=== PATIENT | male | born 1945 | race Caucasian/White ===

== ENCOUNTER 2019-11-21 09:52 | Outpatient (CLI) | payer MEDICARE, SELFPAY ==
[2019-11-21 13:39] LABS: Alanine Aminotransferase 19 U/L (4-50); Albumin Level 4.4 g/dL (3.5-5.1); Alkaline Phosphatase 77 U/L (38-126); Aspartate Amino Transferase 21 U/L (17-59); Bilirubin,Total 0.4 mg/dL (0.2-1.3); Blood Urea Nitrogen 23 mg/dL (9-20); Calcium 10.1 mg/dL (8.4-10.2); Carbon Dioxide 25 mmol/L (22-30); Chloride 95 mmol/L (98-107); Cholesterol 131 mg/dL (0-200); Estimated Glomerular Filt Rate > 60; Glucose 206 mg/dL (75-110); HDL Direct 41 mg/dL; Potassium 4.7 mmol/L (3.4-5.0); Sodium 139 mmol/L (137-145); Triglycerides 153 mg/dL (<150)
[2019-11-21 13:49] LABS: LDL Cholesterol Direct 67 mg/dL
[2019-11-21 14:04] LABS: Creatinine Urine 78.9 mg/dL
[2019-11-21 14:08] LABS: MALB Creatinine Ratio 12.7 mg/g (0-30)
[2019-11-23 05:06] LABS: C-Peptide <0.10 ng/mL (0.80-3.85)
[2019-11-24 12:37] LABS: Glutamic acid decarboxylase AA 41 IU/mL (<5)
[2019-11-25 00:57] LABS: Islet Cell Antibody Screen NEGATIVE (NEGATIVE)
== END 2019-11-21 09:53 | disposition home or self-care (01) ==
PROVIDERS: Visit Provider Internal Medicine Endocrinology, Diabetes & Metabolism
DX: E11.9 Type 2 diabetes mellitus without complications (principal)
CPT/HCPCS: 36415; 80053; 80061; 82043; 84443; 84681; 86341

== ENCOUNTER 2022-01-08 12:16 | Emergency (ER) | payer MEDICARE, SELFPAY ==
--- NOTE | ~2022-01-08 | XR_ITS ---
EXAMINATION: XR tibia fibula LT 2V EXAM DATE: 01/08/2022 13:00 INDICATION: Tenderness along tibia. TECHNIQUE: Left tibia/fibula frontal and lateral projections obtained and reviewed. Correlation is ma de to knee exam same date.. FINDINGS: Left tibial and fibular shafts unremarkable. There are no acute fractures or dislocations identified. There is no subcutaneous gas. There is soft tissue swelling knee anteromedially. There are no radiopaque foreign bodies. IMPRESSION: 1. XR tibia fibula LT 2V exam without acute osseous findings. 2. Soft tissue swelling. Reviewed, dictated and finalized at location A.
--- NOTE | ~2022-01-08 | XR_ITS ---
EXAMINATION: XR knee LT 3V EXAM DATE: 01/08/2022 12:35 INDICATION: Swelling, Medial Aspect Bruising, Fall X 2 Days Ago . TECHNIQUE: Three projections of the left knee. There is no prior study for comparison. FINDINGS: No evidence osteochondral defect or joint body in the left knee joint. There are no acute fractures or dislocations identified. There is no subcutaneous gas. There is soft tissue swelling o verlying the knee anteromedially. No sizable joint effusion. Some vascular calcifications. Minimal pr imary osteoarthritis. There are no radiopaque foreign bodies. IMPRESSION: 1. XR knee LT 3V exam without acute osseous findings. 2. Soft tissue swelling. Reviewed, dictated and finalized at location A.
[2022-01-08 12:18] VITALS: BP 167/78; PULSE 110; RESP 18; TEMP 36.2; O2SAT 99
--- NOTE | 2022-01-08 12:51 | ED.LOWEXIN ---
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 Patient states he was carrying a lot of items in his hand when he turned around a corner and lost his balance, landing on his left knee. He was able to get himself up off the ground without help. He states the knee pain and swelling has increased in severity since onset. Reports mild relief with ibuprofen and ice. Has been walking/ bearing weight with some pain. He denies any hip pain, head injury, loss of consciousness. Takes aspirin daily but no other blood thinners. Related Data Home Medications Medication Instructions Recorded Confirmed levetiracetam 750 mg tablet 750 mg PO BID tablet 11/21/19 09/16/21 amitriptyline 25 mg tablet 25 mg PO QHS tablet 09/16/21 09/16/21 aspirin 81 mg tablet,delayed 81 mg PO DAILY 09/16/21 09/16/21 release insulin glargine 100 unit/mL (3 50 unit SUB-Q DAILY ml 09/16/21 09/16/21 mL) subcutaneous pen lisinopril 20 1 tablet PO DAILY tablet 09/16/21 09/16/21 mg-hydrochlorothiazide 25 mg tablet prednisolone acetate 1 % eye 1 drp EACH EYE Q12H 09/16/21 09/16/21 drops,suspension Allergies Allergy/AdvReac Type Severity Reaction Status Date / Time No Known Allergies Allergy Unknown Verified 01/08/22 12:20 Review of Systems Review of Systems: Gen.: Denies fevers or chills Eyes: Denies eye pain or visual change ENT: Denies congestion Respiratory: Denies shortness of breath or cough CV: Denies chest pain or palpitations GI: Denies abdominal pain nausea, emesis or diarrhea denies burning, urgency, frequency or hematuria Musculoskeletal: Reports right knee pain and chou pain. Denies back pain or muscle pain Neuro: Denies numbness, tingling, weakness or focal weakness Skin: Denies rash Except as documented, all other systems reviewed and negative All systems reviewed & are unremarkable except as noted in HPI and below PMFSH Past Medical History Medical History Asthma Blind right eye Brain tumor Dyslipidemia Essential (primary) hypertension Glaucoma History of meningioma of the brain Hypertension Seizure Seizure prophylaxis Type 2 diabetes mellitus without complications Urinary incontinence, nocturnal enuresis Surgical History Surgical History History of cataract surgery 06/2021 - Left History of craniotomy 2003 - excision of meningioma History of eye surgery 08/2021 - for Left retinal cyst Family History Family History Mother Diabetes mellitus Family history of glaucoma Father Family history of malignant neoplasm Other Family history of congestive heart failure Family history of thyroid disease Social History Social History Smoking status: Current every day smoker Tobacco type: pipe Alcohol intake: never Exam Narrative: Gen: Alert, oriented male in no acute distress. Eyes: Patient is blind in the right eye. Pulm: Respirations even and unlabored, symmetric thorax expansion, no audible stridor or visible cyanosis CV: Regular rate per telemetry GI: No distension, no voluntary/involuntary guarding MSK: Left knee is notably swollen and tender to palpation with ballottement. Small contusion over left knee with some pale erythema surrounding. No warmth to the joint. Tender to palpation over length of the tibia, most notably in the proximal region. Reports pain with left knee flexion. He has full range of motion in his left hip with no tenderness
[2022-01-08 14:06] VITALS: BP 165/68; PULSE 98; RESP 12; O2SAT 97
== END 2022-01-08 14:07 | disposition home or self-care (01) ==
PROVIDERS: Emergency Provider Emergency Medicine; PCP Family Medicine
DX: M70.52 Other bursitis of knee, left knee (principal); E11.9 Type 2 diabetes mellitus without complications; Z79.82 Long term (current) use of aspirin; Z79.4 Long term (current) use of insulin; J45.909 Unspecified asthma, uncomplicated; E78.5 Hyperlipidemia, unspecified; I10 Essential (primary) hypertension; H40.9 Unspecified glaucoma; H54.61 Unqualified visual loss, right eye, normal vision left eye; Z98.42 Cataract extraction status, left eye; F17.290 Nicotine dependence, other tobacco product, uncomplicated; W18.39XA Other fall on same level, initial encounter
CPT/HCPCS: 73562; 73590; 99283

== ENCOUNTER 2022-02-23 09:00 | Outpatient (RCR) | payer MEDICARE, SELFPAY ==
--- NOTE | 2022-02-02 11:34 | PTOPEVAL ---
PHYSICAL THERAPY EVALUATION AND PLAN OF CARE 02-02-22 Thank you for referring Geovani Jackson to [facility] for the diagnosis of L knee contusion, pain and edema. Geovani is scheduled to be seen for therapy? 2 x/week for 3 weeks. Please review, sign, date and return this plan of care LAYO. I agree with and certify that the following plan of care is medically necessary. Referring Physician Date Attending Provider: Desean Aguilera MD Past Medical History Source of Past Medical History Recalled from Previous Visit, Confirmed with Patient/Family Neurological History Hx Other Neurological Disorders Yes: craniotomy due to meningioma, result blind R eye Cardiovascular History Hx Hypertension Yes: meds Respiratory History Hx Asthma Yes: as child Hx COVID-19 Yes: tested positive,only slight s/s Gastrointestinal History Hx Gastrointestinal Disorders No Significant History Genitourinary History Hx Genitourinary Disorders No Significant History Musculoskeletal History Hx Other Musculoskeletal Disorders Yes: off balance with walking due to blind R eye Endocrine History Hx Diabetes Yes: meds HEENT History Hx Other HEENT Disorders Yes: blind R eye Evaluation Information Diagnosis L knee contusion, cellulitis, localized edema Onset 01-06-22 Subjective Information fell when carrying clothes, Query Text:As Reported By Patient/ lost balance, fell forward, Family landing on L knee; xrays of leg were negative; leg is still swollen and painful; have completed antibiotics; Additional Prior Level of Function since fall and leg pain, Comments decreased walking and going to basement for his shop ; no other falls than this in past 6 months; foot is swollen and for ease to put on --wearing slip on shoes only; after initial injury to knee, did all home chores; Pain Assessment Pain Scale Used Numeric (1 - 10) Self Report Pain Assessment Left leg Reported Pain Level 6 Pain Description Aching,Soreness Pain Frequency Acute,Continuous Lowest Pain Intensity 1 Greatest Pain Intensity 6 Pain Aggravating Factors Walking,Weight Bearing/ Standing Other Pain Aggravating Factors up/stand/walking 30 min(norm for him few hrs) turn over in
--- NOTE | 2022-02-23 09:52 | PTOPEVAL ---
Addendum entered by Shavon Cosby, PT 02/23/22 09:56: DISCHARGE PHYSICAL THERAPY 02-23-22 Refer to the clinical summary below; discharge PT services. Original Note: Thank you for referring Geovani Jackson to [facility].? The patient is scheduled to be seen for therapy? ____x/week for ___ weeks. Please review, sign, date and return this plan of care LAYO. I agree with and certify that the following plan of care is medically necessary. Referring Physician Date Attending Provider: Desean Aguilera MD Subjective Information Geovani reports: balance is Query Text:As Reported By Patient/ better; knee is not hurting as Family much; leg strength is better; doing exercises at home; has not had any falls; going into his basement without any problems on the stairs; feel like ready to be done with therapy; Pain Assessment Pain Scale Used Numeric (1 - 10) Self Report Pain Assessment Left Knee(s) Reported Pain Level 0 Pain Description Aching Pain Frequency Chronic,Intermittent Other Pain Description achey- inferior patella, slightly medial Lowest Pain Intensity 0 Greatest Pain Intensity 5 Other Pain Aggravating Factors at night when turn over in bed - twist leg Additional Pain Score Comments walking tolerance of 30 minutes; awaken from sleep 2-3 x/night due to turning and twist knee; Gross Lower Extremity Range of Motion sitting L knee active ROM 0'- Comments 125' without pain; L ankle motions without pain; Gross Lower Extremity Strength functional strength testing: - single leg standing L- unable to do without UE support; with finger tip support 1 UE, hold single leg for 18 seconds; --sit to stand with 1 UE use and stand to sit without UE use - supine SLR x 22 reps - sitting knee extension to 0' x 25 reps - side lying hip abduction x 20 reps Palpation with palpation over L knee: no tenderness over distal- medial thigh; little tenderness over inferior patella-
== END 2022-02-23 11:15 | disposition home or self-care (01) ==
LOC: ANHPT 09:00
PROVIDERS: PCP Family Medicine; Referring Provider Orthopaedic Surgery; Visit Provider Orthopaedic Surgery
DX: S80.02XD Contusion of left knee, subsequent encounter (principal); L03.116 Cellulitis of left lower limb; R60.0 Localized edema
CPT/HCPCS: 97110; 97140; 97162; 97530

== ENCOUNTER 2022-07-26 16:00 | Inpatient (IN) | payer MEDICARE, OTHER, SELFPAY ==
--- NOTE | ~2022-07-26 | XR_ITS ---
XR surgery orthopedic DATE: 07/27/2022 16:26 INDICATION: ORIF right femoral fracture TECHNIQUE: 6 spot C-arm images of the right hip and femur 51.8 seconds fluoroscopy time 0.2529 mGym2 total dose area product COMPARISON: 07/26/2022 right hip FINDINGS: There is an antegrade nail of the right femur with interlocking compression screw terminati ng in the right femoral head. There is another interlocking screw at the femoral shaft. There is near-anatomic position and alignment at the comminuted intertrochanteric and proximal femora l shaft fracture. IMPRESSION: ORIF right femoral fracture Reviewed, dictated and finalized at Location A. Reviewed, dictated and finalized at location A. IMPRESSION: ORIF right femoral fracture
--- NOTE | ~2022-07-26 | XR_ITS ---
EXAMINATION: XR hip RT 2V w AP pelvis INDICATION: Right hip pain, initial encounter TECHNIQUE: AP view the pelvis and two views of the right hip are obtained. COMPARISON: None available FINDINGS: There is an oblique fracture of the proximal femur oriented inferolaterally from the lesser trochanter to the outer cortex of the proximal femoral shaft. There are additional fracture planes i n the proximal femur extending towards the greater trochanter. There is moderate osteoarthritis of th e hip. No additional fracture is identified. Calcified atherosclerosis is noted. IMPRESSION: 1. Oblique fracture of the proximal shaft of the right femur with additional fracture planes in the p roximal femur extending towards the greater trochanter. Reviewed, dictated and finalized at location F. IMPRESSION: 1. Oblique fracture of the proximal shaft of the right femur with additional fr acture planes in the proximal femur extending towards the greater trochanter.
--- NOTE | ~2022-07-26 | XR_ITS ---
EXAMINATION: XR chest 1V portable INDICATION: Hypertension TECHNIQUE: Portable AP chest at 1753 hours COMPARISON: 07/02/2014 FINDINGS: The lungs are free of acute opacities. No pleural effusion or pneumothorax. The cardiomedia stinal silhouette is normal. IMPRESSION: 1. No acute cardiopulmonary abnormality. Reviewed, dictated and finalized at location F.
[2022-07-26 16:02] VITALS: BP 159/65; PULSE 79; RESP 18; TEMP 37; O2SAT 97
--- NOTE | 2022-07-26 17:29 | ECG_ITS ---
Measurements Intervals [place] Rate: 73 P: 26 NE: 163 QRS: 6 QRSD: 99 T: 30 QT: 401 QTc: 443 Interpretive Statements SINUS RHYTHM NO PREVIOUS ECG AVAILABLE FOR COMPARISON Electronically Signed On 07-26-2022 19:51:02 CDT by Ashly Greenwood M.D.
--- NOTE | 2022-07-26 17:46 | ED.FALL ---
HPI - Fall General Chief Complaint: Fall Stated Complaint: FALL, HIP PAIN Time Seen by Provider: 07/26/22 16:49 Source: patient and EMS Mode of arrival: EMS Limitations: no limitations History of Present Illness HPI Narrative: 76 years white male came to the emergency room by ambulance after a fall in his garage. Complaining of right hip pain. He denies other injuries. Patient was raking leaves, lost his balance and fell on the right side of his body. He denies loss of consciousness, head injury, neck injury, back injury. Patient on baby aspirin every other day. History of tension, diabetes, seizure. Related Data Home Medications Medication Instructions Recorded Confirmed levetiracetam 750 mg tablet 750 mg PO BID 11/21/19 03/18/22 amitriptyline 25 mg tablet 25 mg PO QHS 09/16/21 03/18/22 aspirin 81 mg tablet,delayed 81 mg PO DAILY 09/16/21 03/18/22 release insulin glargine 100 unit/mL (3 50 unit subcut DAILY 09/16/21 03/18/22 mL) subcutaneous pen (Lantus Solostar U-100 Insulin) lisinopril 20 1 tablet PO DAILY 09/16/21 03/18/22 mg-hydrochlorothiazide 25 mg tablet insulin aspart U-100 100 unit/mL 16 unit subcut TID 03/18/22 03/18/22 (3 mL) subcutaneous pen (Novolog Flexpen U-100 Insulin aspart) Allergies Allergy/AdvReac Type Severity Reaction Status Date / Time No Known Allergies Allergy Unknown Verified 07/26/22 16:11 Review of Systems Review of Systems: All systems reviewed & are unremarkable except as noted in HPI and below PMFSH Past Medical History Medical History Asthma Blind right eye Brain tumor Dyslipidemia Essential (primary) hypertension Glaucoma History of meningioma of the brain Hypertension Seizure Seizure prophylaxis Type 2 diabetes mellitus without complications Urinary incontinence, nocturnal enuresis Surgical History Surgical History History of cataract surgery 06/2021 - Left History of craniotomy 2003 - excision of meningioma History of eye surgery 08/2021 - for Left retinal cyst Family History Family History Mother Diabetes mellitus Family history of glaucoma Father Family history of malignant neoplasm Other Family history of congestive heart failure Family history of thyroid disease Social History Social History Smoking status: Current every day smoker Tobacco type: pipe Alcohol intake: never Exam Narrative: General appearance: Well-developed, well-nourished Skin: Normal color Head: Normocephalic, nontraumatic Eyes: Clear conjunctiva ENT: Oropharynx normal, ears normal, nose normal Neck: Supple, nontender Chest and respiratory: Airway patent, no respiratory distress, no accessory muscle use Heart: Regular rate/rhythm Abdomen: Soft, nontender, no organomegaly, quiet bowel sounds Vascular: Normal peripheral pulses, normal capillary refill. Musculoskeletal: Right lower extremity is externally rotated and shorter compared to the left 1. Severe limited range of motion at the hip area. Neurologic: Alert and oriented ?3, [employer] is normal as tested, no gross motor deficit Course Consultations Consultation #1: Dr. Garrido Date: 07/26/22 Time: 18:55 Consultation #2: Dr. Harrison/Trinity Date: 07/26/22 Time: 18:56 Vital Signs Vital signs: Vital Signs Temperature 37.0 C 07/26/22 16:02 Pulse Rate 79 07/26/22 16:02 Respiratory Rate 18 07/26/22 16:02 Blood Pressure 159/65 H 07/26/22 16:02 Pulse Oximetry 97 07/26/22 16:02 Oxygen Delivery
[2022-07-26 17:48] LABS: Basophils Absolute Auto 0.1 K/mm3 (0.0-0.1); Basophils Percent Auto 0.8 % (0.2-1.2); Eosinophils Absolute Auto 0.3 K/mm3 (0-0.3); Eosinophils Percent Auto 2.5 % (0-4.4); Hematocrit 44.2 % (42.0-52.0); Hemoglobin 14.3 g/dL (14.0-18.0); Immature Granulocyte Absolute 0.05 K/mm3 (0.00-0.031); Immature Granulocyte Percent A 0.4 % (0-0.5); Lymphocytes Absolute Auto 1.53 K/mm3 (0.9-3.2); Lymphocytes Percent Auto 12.6 % (18.3-44.2); Mean Corpuscular HGB Conc 32.4 g/dl (32-36); Mean Corpuscular Hemoglobin 27.6 pg (26-34); Mean Corpuscular Volume 85.3 fl (80-100); Mean Platelet Volume 9.3 fl (7.4-10.4); Monocytes Absolute Auto 0.8 K/mm3 (0.1-0.6); Monocytes Percent Auto 6.8 % (2.6-8.5); Neutrophils Absolute Auto 9.3 K/mm3 (1.3-6.7); Neutrophils Percent Auto 76.9 % (45.5-73.1); Platelet Count Result 327 k/mm3 (150-375); Red Blood Count 5.18 M/mm3 (4.6-6.20); White Blood Count 12.1 K/mm3 (4.5-10.0)
[2022-07-26 17:59] LABS: Alanine Aminotransferase 19 U/L (6-50); Albumin Level 4.2 g/dL (3.5-5.1); Alkaline Phosphatase 70 U/L (38-126); Anion Gap 8 mmol/L (8-16); Aspartate Amino Transferase 19 U/L (17-59); Bilirubin,Total 0.2 mg/dL (0.2-1.3); Blood Urea Nitrogen 29 mg/dL (9-20); Calcium 9.5 mg/dL (8.4-10.2); Carbon Dioxide 27 mmol/L (22-30); Chloride 106 mmol/L (98-107); Estimated CRCL calculation 71 ml/min; Estimated Glomerular Filt Rate > 60; Glucose 130 mg/dL (65-110); Potassium 3.9 mmol/L (3.4-5.0); Sodium 141 mmol/L (137-145)
[2022-07-26 18:16] LABS: Partial Thromboplastin Time 25.8 SECONDS (22.3-36.8)
[2022-07-26] MEDS: ONDANSETRON INJ 4 MG/2 ML VIAL IV PUSH (18:32)
[2022-07-26] MEDS: MORPHINE SULFATE (*CRX) 4 MG/ML INJ IV PUSH ×2 (18:32→22:25)
[2022-07-26 18:41] VITALS: BP 146/68; PULSE 72; RESP 18; O2SAT 98
[2022-07-26 18:46] LABS: INR 1.1; Prothrombin Time 13.3 Seconds (11.1-14.7)
--- NOTE | 2022-07-26 19:56 | PC.NURSE ---
Covid swab obtained and sent to lab.
[2022-07-26 20:41] LABS: SARS-CoV-2 RNA PCR Negative
[2022-07-26 21:50] VITALS: BP 148/72; PULSE 75; RESP 18; TEMP 35.8; O2SAT 95
[2022-07-26 21:51] VITALS: BMI 26.6
[2022-07-26] MEDS: LACTATED RINGERS 1,000 ML 125 ML IV CONT (22:29)
--- NOTE | 2022-07-26 22:50 | PM.IMHP ---
H&P: HPI History of Present Illness Date/Time: 07/26/22 22:50 Chief Complaint: Right hip pain after fall. Narrative: This is a very pleasant 76-year-old male with type 1 diabetes mellitus and hypertension who presented to the emergency department via EMS form home for evaluation of right hip pain after a fall. He was in his usual state of health this morning and not long prior to arrival he was out in the garage sweeping leaves. After he was finished and when he turned to shut the garage door, he got tripped up in his footing and landed hard on his right hip. He was unable to get himself up due to pain and EMS was summoned. In the ED he was found to have an oblique fracture of the proximal shaft of the right femur with additional fracture planes in the proximal femur extending towards the greater trochanter, and he is being admitted in this setting. He sustained no other injuries in the fall and there was no head trauma or loss of consciousness. His pain is manageable however he does have aching discomfort when trying to move the right leg. Review of Systems Review of Systems: 12 systems were reviewed. No fever, chills, or sweats. No recent cold or flu symptoms. No syncope or near syncope. He denies exertional chest pain shortness a breath. No known history of cardiac or pulmonary disease. He has had 2 cardiac catheterizations in the last 20 years or so with no coronary artery disease, per patient report. He believes his diabetes is pretty well controlled. He has a continues glucose monitor and he has not noticed any significant highs or lows recently. Except as documented, all other systems were reviewed and negative. 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 Dyslipidemia Glaucoma Hypertension Seizure Type 1 diabetes mellitus Urinary incontinence, nocturnal enuresis Surgical History Surgical History (Updated 07/26/22 @ 22:53 by Meredith Crowe PA-C) History of craniotomy (2003) Excision meningioma. History of eye surgery (08/2021) For left retinal cyst. History of left cataract extraction Family History Family History Mother Diabetes mellitus Family history of glaucoma Father Family history of malignant neoplasm Other Family history of congestive heart failure Family history of thyroid disease Social History Social History (Updated 07/26/22 @ 23:27 by Meredith Crowe PA-C) Social History: Surrogate medical decision maker: Teresa Jackson, spouse. Code status: Full code. Smoking status: Current every day smoker Tobacco type: pipe Alcohol intake: never Substance use: never Additional living arrangements comments: The patient lives with his in [place]. They have 3 children. Occupation/Education: retired Additional occupation/education comments: He was in the [employer] and stationed in [place] from January 1968 - January 1969. He retired from [employer]. Spiritual care concerns: No Has the Lack of Transportation Kept You From Medical Appointments or From Getting Medications?: No Within the Past 12 Months, Were You Worried Whether Your Food Would Run Out Before You Got Money to Buy More?: Never True What is Your Housing Situation Today?: I Have Housing Are You Worried That in the Next 2 Months, You May Not Have Your Own Housing to Live In?: No Do You Have Trouble Paying Your Heating Or Electricity Bill?: No Do You Have Trouble Paying For Medicines?: No Are You Currently Unemployed and Looking for Work?: No Highest Level of Education Completed: Associate Degree Do You Have Trouble With Childcare or the Care of a Family Member?: No Meds Home Medications and Allergies Home Medications Medication Instructions Recorded Conf
[2022-07-26] MEDS: levETIRAcetam 250 MG TABLET 750 MG PO (23:42)
[2022-07-26] MEDS: AMITRIPTYLINE HCL 25 MG TABLET PO (23:42)
[2022-07-27] VITALS (13 sets, daily range): BP systolic 120–175; BP diastolic 44–73; PULSE 68–86; RESP 12–19; TEMP 36.1–36.9; O2SAT 87–100
[2022-07-27] MEDS: MORPHINE SULFATE (*CRX) 4 MG/ML INJ IV PUSH ×4 (01:22→10:13)
[2022-07-27 06:31] LABS: Hemoglobin 12.5 g/dL (14.0-18.0); Mean Corpuscular HGB Conc 32.1 g/dl (32-36); Mean Corpuscular Hemoglobin 27.6 pg (26-34); Mean Corpuscular Volume 86.1 fl (80-100); Mean Platelet Volume 9.5 fl (7.4-10.4); Platelet Count Result 287 k/mm3 (150-375); Red Blood Count 4.53 M/mm3 (4.6-6.20); White Blood Count 15.6 K/mm3 (4.5-10.0)
[2022-07-27 06:53] LABS: Anion Gap 10 mmol/L (8-16); Blood Urea Nitrogen 29 mg/dL (9-20); Calcium 8.6 mg/dL (8.4-10.2); Carbon Dioxide 28 mmol/L (22-30); Chloride 99 mmol/L (98-107); Estimated CRCL calculation 71 ml/min; Estimated Glomerular Filt Rate > 60; Glucose 336 mg/dL (65-110); Magnesium 1.8 mg/dL (1.6-2.3); Potassium 4.2 mmol/L (3.4-5.0); Sodium 137 mmol/L (137-145)
[2022-07-27 06:56] LABS: Hemoglobin A1C 8.9 % (<5.7)
--- NOTE | 2022-07-27 08:23 | PM.CNOR ---
Assessment and Plan Assessment and plan (1) Type 1 diabetes mellitus: Qualifiers: Diabetes mellitus complication detail: with other skin complication Diabetes mellitus complication status: with skin complications Qualified Code(s): E10.628 - Type 1 diabetes mellitus with other skin complications Code(s): E10.9 - Type 1 diabetes mellitus without complications Status: Acute Assessment and Plan: Hemoglobin A1c elevated. Recommend nutrition/diet consult possible career resource specialist. (2) Fall from ground level: Code(s): W18.30XA - Fall on same level, unspecified, initial encounter Status: Acute (3) Subtrochanteric fracture of right femur: Qualifiers: Encounter type: initial encounter Fracture alignment: displaced Fracture type: closed Qualified Code(s): S72.21XA - Displaced subtrochanteric fracture of right femur, initial encounter for closed fracture Code(s): S72.21XA - Displaced subtrochanteric fracture of right femur, initial encounter for closed fracture Status: Acute Assessment and Plan: Discussed nonoperative and operative treatment options with the patient. Risks and benefits of each as well as alternatives were reviewed. All of the patient's questions were answered. The risks of surgery reviewed including but not limited to: Neurovascular damage, wound complication, infection, blood clot, pulmonary embolus, stroke, myocardial infarction, and anesthetic risks up to and including . Continued pain and possible dysfunction were explained. Specific risks of the procedure including later recurrence of deformity. No guarantees were offered. If hardware used, discussed risk of failure/ breakage and possible need for removal. If complications occur, the patient understands the need for further treatment, possible further surgery. Patient verbalizes understanding and wishes to proceed. PLAN: Right femur fracture reduction with intramedullary nail and hip screw fixation. History of Present Illness HPI Consult date: 07/27/22 Requesting physician: Killian Mccollum MD Chief complaint: Right Hip Fracture Narrative: 76-year-old gentleman with fall onto right side. Right hip pain. Emergency room found to have right hip fracture and admitted for further care. No prior complaints of the right hip. Review of Systems Constitutional: Constitutional: Denies fever(s) Eyes: Eyes: Denies blurry vision ENT: Reports Normal hearing present Cardiovascular: Cardiovascular: Denies chest pain and Denies dyspnea Respiratory: Respiratory: Denies dyspnea and Denies wheezing Gastrointestinal: Gastrointestinal: Denies abdominal pain Genitourinary: Genitourinary: Denies urinary urgency Musculoskeletal: Musculoskeletal: Reports as per HPI and Denies numbness Integumentary/Breasts: Skin/Breast: Denies changing lesions and Denies sores Neurologic: Reports Normal hearing present, Denies behavioral changes, Denies confusion, Denies numbness and Denies convulsions Psychiatric: Psychiatric: Denies behavioral changes, Denies confusion and Denies hallucinations Endocrine: Endocrine: Denies heat intolerance Hematologic/Lymphatic: Hematologic/Lymphatic: Denies easy bleeding Allergic/Immunologic: Allergic/Immunologic: Denies wheezing PMFSH Past Medical History Medical History Asthma Benign meningioma of brain 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 Dyslipidemia Glaucoma Hypertension Seizure Subtrochanteric fracture of right femur Type 1 diabetes mellitus Urinary incontinence, nocturnal enuresis Surgical History Surgical History History of craniotomy (2003) Excision meningioma. History of eye surgery (08/2021) For left retinal cyst. History of left cataract extraction Family History Family
[2022-07-27 08:37] LABS: Glucose Point of Care 364 mg/dl (65-105)
[2022-07-27] MEDS: levETIRAcetam 250 MG TABLET 750 MG PO ×2 (08:40→21:55)
[2022-07-27] MEDS: hydroCHLOROthiazide 25 MG TABLET PO (08:40)
[2022-07-27] MEDS: lisinopriL 20 MG TABLET PO (08:40)
[2022-07-27 11:37] LABS: Glucose Point of Care 422 mg/dl (65-105)
[2022-07-27] MEDS: INSULIN ASPART (*BKC) 100 UNITS/ML SUB-Q (11:49)
[2022-07-27] MEDS: SODIUM CHLORIDE 0.9% IV 1,000 ML 999 ML IV CONT ×2 (11:57→23:53)
--- NOTE | 2022-07-27 13:40 | PC.NURSE ---
To OR via bed.
--- NOTE | 2022-07-27 13:56 | WPDANESEPPF ---
Anes - Initial Pre Proc Eval Procedure: Operation Date: 07/27/22 15:00 Proposed Procedures p Right Femur Fracture Reduction with Intramedullary Nail and Hip Screw Fixation - Esteban Garrido MD Date/Time: 07/27/22 13:56 Surgeon: MARCUS Alvarez Pre Op Diagnosis: Right Hip Fracture Patient Data Age: 76 Gender: M Height: 1.85 m Weight: 91.8 kg Last Vital Signs Temp 36.2 C L 07/27/22 06:00 Pulse 82 07/27/22 06:00 Resp 18 07/27/22 06:00 BP 175/73 H 07/27/22 06:00 Pulse Ox 93 07/27/22 06:00 O2 Del Method Room Air 07/27/22 08:40 Allergies Allergy/AdvReac Type Severity Reaction Status Date / Time No Known Allergies Allergy Unknown Verified 07/26/22 16:11 Home Medications Medication Instructions Recorded Confirmed Type flash glucose scanning reader #1 ea 11/21/19 07/26/22 Rx (FreeStyle Yohan 14 Day [place]) flash glucose sensor (FreeStyle #6 ea 11/21/19 07/26/22 Rx Yohan 14 Day Sensor kit) levetiracetam 750 mg tablet 750 mg PO QAM AND QHS 11/21/19 07/26/22 History flash glucose scanning reader #1 11/29/19 07/26/22 Rx (FreeStyle Yohan 14 Day [place]) flash glucose sensor (FreeStyle #6 11/29/19 07/26/22 Rx Yohan 14 Day Sensor kit) insulin syringe-needle U-100 1 mL #100 08/21/21 07/26/22 Rx 31 gauge x 5/16 (BD Insulin Syringe Ultra-Fine) amitriptyline 25 mg tablet 25 mg PO QHS 09/16/21 07/26/22 History aspirin 81 mg tablet,delayed 81 mg PO EVERY OTHER DAY 09/16/21 07/26/22 History release insulin glargine 100 unit/mL (3 50 unit subcut HS 09/16/21 07/26/22 History mL) subcutaneous pen (Lantus Solostar U-100 Insulin) lisinopril 20 1 tablet PO DAILY 09/16/21 07/26/22 History mg-hydrochlorothiazide 25 mg tablet insulin aspart U-100 100 unit/mL 16 unit subcut TIDWMEAL 03/18/22 07/26/22 History (3 mL) subcutaneous pen (Novolog Flexpen U-100 Insulin aspart) Laboratory Tests 07/26/22 07/26/22 07/26/22 17:44 17:44 17:44 WBC 12.1 K/mm3 H K/mm3 (4.5-10.0) RBC 5.18 M/mm3 M/mm3 (4.6-6.20) Hgb 14.3 g/dL g/dL (14.0-18.0) Hct 44.2 % % (42.0-52.0) MCV 85.3 fl fl (80-100) MCH 27.6 pg pg (26-34) MCHC 32.4 g/dl g/dl (32-36) RDW 14.0 % % (11.5-14.5) Plt Count 327 k/mm3 k/mm3 (150-375) MPV 9.3 fl fl (7.4-10.4) Immature Gran % (Auto) 0.4 % % (0-0.5) Neut % (Auto) 76.9 % H % (45.5-73.1) Lymph % (Auto) 12.6 % L % (18.3-44.2) [place] % (Auto) 6.8 % % (2.6-8.5) Eos % (Auto) 2.5 % % (0-4.4) Baso % (Auto) 0.8 % % (0.2-1.2) Lymph # (Auto) 1.53 K/mm3 K/mm3 (0.9-3.2) [place] # (Auto) 0.8 K/mm3 H K/mm3 (0.1-0.6) Eos # (Auto) 0.3 K/mm3 K/mm3 (0-0.3) Baso # (Auto) 0.1 K/mm3 K/mm3 (0.0-0.1) Abs Immat Gran (auto) 0.05 K/mm3 H K/mm3 (0.00-0.031) Absolute Neuts (auto) 9.3 K/mm3 H K/mm3 (1.3-6.7) Absolute Nucleated RBC 0.0 K/mm3 K/mm3 (0.0-0.012) Nucleated RBC % 0.0 % % (0.0-0.2) PT 13.3 Seconds Seconds (11.1-14.7) INR 1.1 APTT 25.8 SECONDS SECONDS (22.3-36.8) Sodium 141 mmol/L mmol/L (137-145) Potassium 3.9 mmol/L mmol/L (3.4-5.0) Chloride 106 mmol/L mmol/L (98-107) Carbon Dioxide 27 mmol/L mmol/L (22-30) Anion Gap 8 mmol/L mmol/L (8-16) BUN 29 mg/dL H mg/dL (9-20) Creatinine 0.90 mg/dL mg/dL (0.7-1.3) Estim Creat Clear Calc 71 ml/min ml/min Estimated GFR > 60 (59 - ) Glucose 130 mg/dL H mg/dL (65-110) POC Capillary Glucose Hemoglobin A1c Calcium 9.5 mg/dL mg/dL (8.4-10.2) Magnesium Total Bilirubin 0.2 mg/dL mg/dL (0.2-1.3) AST 19 U/L U/L (17-59) ALT
[2022-07-27] MEDS: KETOROLAC 15 MG/ML VIAL (*BKC) IV PUSH (14:03)
[2022-07-27] MEDS: ACETAMINOPHEN 500 MG TABLET 1000 MG PO (14:03)
[2022-07-27] MEDS: TRANEXAMIC ACID 1,000MG/ISO100 1,000 MG/100 ML BAG 200 MG IVPB (14:03)
[2022-07-27] MEDS: LACTATED RINGERS 1,000 ML 30 ML IV CONT (14:03)
[2022-07-27 14:09] LABS: Glucose Point of Care 371 mg/dl (65-105)
--- NOTE | 2022-07-27 14:28 | SUR.PREOP ---
HAIR REMOVAL DEFERRED DUE TO PAIN AND INTOLERANCE OF MOVEMENT.
--- NOTE | 2022-07-27 14:35 | PM.IMPN ---
Progress Note: A&P Assessment and Plan (1) Right femoral fracture: Code(s): S72.91XA - Unspecified fracture of right femur, initial encounter for closed fracture Status: Acute Assessment and Plan: Operating room this afternoon for definitive treatment. Orthopedics following along with medicine. Fall precautions (2) Fall from ground level: Code(s): W18.30XA - Fall on same level, unspecified, initial encounter Status: Acute Assessment and Plan: see above (3) Essential (primary) hypertension: Code(s): I10 - Essential (primary) hypertension Status: Acute Assessment and Plan: currently well controlled. Home medications of Zestoretic reordered. Continue to monitor. (4) Type 1 diabetes mellitus: Qualifiers: Diabetes mellitus complication status: with skin complications Diabetes mellitus complication detail: with other skin complication Qualified Code(s): E10.628 - Type 1 diabetes mellitus with other skin complications Code(s): E10.9 - Type 1 diabetes mellitus without complications Status: Acute Assessment and Plan: Continue 50 units of Lantus at bedtime. Continue moderate dose corrective sliding scale insulin. Accu-Cheks a.c. and HS diabetic diet after operation hypoglycemic protocol. Time Spent With Patient Time with patient: 15 - 25 minutes Subjective Date/time seen: 07/27/22 1200 This pt. Is examined at the bedside at this time prior to going to the operating room after sustaining a ground level fall an acute injury to his right hip. He sustained an oblique fracture of the proximal right femur and Dr. Murry will be taking to the OR this afternoon. He complains of pain in the affected extremity, no distal numbness or tingling and no other complaints of discomfort or pain. Currently his pain is well controlled. Review of Systems Review of Systems: All systems reviewed & are unremarkable except as noted in HPI and below Exam Const: General: comfortable HENMT: Ears: TM's normal bilaterally Mouth: Yes moist mucous membranes Eyes: General: appearance normal, both eyes and all related structures Sclera: sclerae normal Pupils: Equal, round and reactive pupils present EOM: EOMs intact bilaterally Neck: Neck: supple and no JVD Resp: Effort & Inspection: normal respiratory effort Auscultation: clear to auscultation bilaterally Cardio: Rate: regular rate Rhythm: regular rhythm Heart sounds: no gallops, no murmurs and no rubs GI: Inspection: non-distended GI Palp: Yes Soft to palpation, No Tenderness to palpation present (GI) and No Guarding due to palpation present (GI) Auscultation: normal bowel sounds Skin: General skin exam: normal color, no rashes or lesions noted and no erythema Lesions: no lesions noted Rashes: no rashes noted Wounds: no wounds Neuro: General: gait normal Speech: normal speech Motor exam (neuro): strength not 5/5 throughout (Weak in affected extremity.) and Normal motor muscle tone present throughout Sensory Exam: normal sensation Extrem: General: normal to inspection, no edema and no pedal edema Psych: Mental Status: mental status grossly normal Affect: normal affect Objective Data Vital Signs Vital Signs: Vital Signs - 24 hr 07/26/22 16:02 07/26/22 18:41 07/26/22 21:50 Temperature 98.6 F 96.4 F L Pulse Rate 79 72 75 Respiratory Rate 18 18 18 Blood Pressure 159/65 H 146/68 H 148/72 H Pulse Oximetry 97 98 95 Oxygen Delivery Room Air 07/27/22 06:00 07/27/22 08:40 07/27/22 14:01 Temperature 97.1 F L 98.4 F Pulse Rate 82 81 Respiratory Rate 18 18 Blood Pressure 175/73 H 134/56 L Pulse Oximetry 93 92 Oxygen Delivery Room Air Room Air Intake/Output Intake/Output: Intake & Output 07/24/22 07/25/22 07/26/22 07/27/22 23:59 23:59 23:59 23:59 Intake Total 480 Output Total 1500 Balance -1020 Meds/Results Medications:
--- NOTE | 2022-07-27 15:26 | WPDHPUPDATE1 ---
History and Physical Update Update Date/Time: 07/27/22 15:26 History and Physical has been reviewed, including an updated exam of the patient. There are NO changes in the patient's condition. Risks, benefits, and alternatives have been discussed and questions answered. Patient agrees to proceed with procedure.
[2022-07-27] MEDS: ceFAZolin 2 GM/D5W 50 ML 2 GM/50 ML BAG IVPB (15:31)
[2022-07-27] MEDS: BUPIVACAINE/EPINEPHRINE 0.25% 50 ML VIAL 30 ML INFILTRATE (16:04)
--- NOTE | 2022-07-27 16:32 | P.OP_ITS ---
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 Patient desires operative treatment. Description of Procedure After informed consent the operative extremity was marked in the preoperative holding area. Patient received intravenous antibiotics. The patient was taken to the operative room, placed in the supine position, general anesthesia induced by the anesthesia team, and was placed on a fracture table with longitudinal traction applied to the right leg. The non operative leg was extended out of the field. The hip fracture was reduced to near anatomic position and verified with image intensification. A time-out was performed confirming the patient, site of the surgery and plan. The right lower extremity was prepped and draped sterilely from the knee to the iliac crest region using a ChloraPrep skin solution. Incision was made just proximal to greater trochanter down to the subcutaneous tissues. Hemostasis controlled with electrocautery. Blunt dissection through the fascia to the tip of the greater trochanter. A starter awl was placed at the tip of the greater trochanter into the medullary canal of the femur. This was checked with image intensification and was in good position. Intramedullary guide staci positioned. A one-step hand reaming done proximally. Intramedullary canal was reamed with a 12.5 millimeter flexible reamer. Measuring was then performed off of the guide staci. Neck angle selected off of preoperative radiographs temp plating. 125 degree 11.0 X 420mm Nail opened on the back table and assembled. This was then inserted over the guide staci to the correct depth. Guide staci removed. Lag screw was then placed with a stab incision over the lateral femur using a 10 blade knife. Blunt dissection down to the lateral side of the bone. Soft tissue protectors placed. Guide pin placed in the center center position of the femoral head and measured. 100 millimeter x 10.5 millimeter lag screw placed to correct depth and verified with image intensification. Traction then released from the leg and compression of the fracture performed with the external compression device. Proximal locking screw placed. Distal locking of the nail then performed. Image intensification used to assist in positioning the drill. Drill measure and appropriate size screw placed to lock the nail. Final image intensification confirm reduction of the fracture and placement of the hardware. Wounds then thoroughly irrigated with antibiotic solution. Fascia repaired with 0 Vicryl interrupted suture. Subcutaneous tissue repaired with 2 Vicryl in a procedure and skin repaired with peyman. Sterile dressings applied. Patient then awoke from anesthesia, extubated taken to recovery room stable condition. All sponge, needle and instrument counts correct at the end the case. Implants Arthrex extended length trochanteric nail 11 mm by 420 mm with 125 degree angle. 10.5 mm x 100 mm lag screw. 5 mm x 38 mm distal locking screw. Estimated Blood Loss 100 Urine Output 0 Drains No Packing No Pathology None sent Complications None Condition Stable Disposition PACU
[2022-07-27 16:50] LABS: Glucose Point of Care 378 mg/dl (65-105)
[2022-07-27] MEDS: INSULIN HUMAN REGULAR (*BKC) 100 UNITS/ML 6 UNITS SUB-Q (17:08)
[2022-07-27] MEDS: fentaNYL CITRATE INJ (*CRX) 100 MCG/2 ML VIAL 25 MCG IV PUSH ×2 (17:22→17:24)
--- NOTE | 2022-07-27 17:40 | PC.NURSE ---
Back from OR via stretcher.
[2022-07-27 21:47] LABS: Glucose Point of Care > 500 mg/dl (65-105)
[2022-07-27] MEDS: AMITRIPTYLINE HCL 25 MG TABLET PO (21:54)
[2022-07-27] MEDS: ASPIRIN 325 MG ENTERIC TABLET PO (21:59)
[2022-07-27] MEDS: SENNA/DOCUSATE SODIUM TABLET 2 TAB PO (21:59)
[2022-07-27] MEDS: INSULIN GLARGINE (*BKC) 100 UNITS/ML 50 UNITS SUB-Q (22:01)
[2022-07-27] MEDS: INSULIN HUMAN REGULAR (*BKC) 100 UNITS/ML 10 UNITS SUB-Q (22:23)
[2022-07-27 23:27] LABS: Glucose Point of Care > 500 mg/dl (65-105)
[2022-07-27] MEDS: INSULIN HUMAN REGULAR (*BKC) 100 UNITS/ML 20 UNITS SUB-Q (23:51)
[2022-07-28] VITALS (8 sets, daily range): BP systolic 110–148; BP diastolic 45–62; PULSE 86–103; RESP 16–18; TEMP 36.1–37.5; O2SAT 90–95
[2022-07-28 00:58] LABS: Glucose Point of Care 433 mg/dl (65-105)
[2022-07-28] MEDS: INSULIN HUMAN REGULAR (*BKC) 100 UNITS/ML 10 UNITS SUB-Q (01:47)
[2022-07-28 07:36] LABS: Basophils Absolute Auto 0.1 K/mm3 (0.0-0.1); Basophils Percent Auto 0.5 % (0.2-1.2); Eosinophils Absolute Auto 0.4 K/mm3 (0-0.3); Eosinophils Percent Auto 2.5 % (0-4.4); Hemoglobin 11.1 g/dL (14.0-18.0); Immature Granulocyte Absolute 0.06 K/mm3 (0.00-0.031); Immature Granulocyte Percent A 0.4 % (0-0.5); Lymphocytes Absolute Auto 1.35 K/mm3 (0.9-3.2); Lymphocytes Percent Auto 9.2 % (18.3-44.2); Mean Corpuscular HGB Conc 32.6 g/dl (32-36); Mean Corpuscular Hemoglobin 27.4 pg (26-34); Mean Platelet Volume 9.6 fl (7.4-10.4); Monocytes Absolute Auto 1.3 K/mm3 (0.1-0.6); Monocytes Percent Auto 8.9 % (2.6-8.5); Neutrophils Absolute Auto 11.5 K/mm3 (1.3-6.7); Neutrophils Percent Auto 78.5 % (45.5-73.1); Platelet Count Result 269 k/mm3 (150-375); Red Blood Count 4.05 M/mm3 (4.6-6.20); Red Cell Distribution Width 13.8 % (11.5-14.5); White Blood Count 14.7 K/mm3 (4.5-10.0)
[2022-07-28 07:48] LABS: Alanine Aminotransferase 16 U/L (6-50); Albumin Level 3.4 g/dL (3.5-5.1); Alkaline Phosphatase 66 U/L (38-126); Anion Gap 12 mmol/L (8-16); Aspartate Amino Transferase 18 U/L (17-59); Bilirubin,Total 0.3 mg/dL (0.2-1.3); Blood Urea Nitrogen 26 mg/dL (9-20); Carbon Dioxide 28 mmol/L (22-30); Chloride 101 mmol/L (98-107); Estimated CRCL calculation 71 ml/min; Estimated Glomerular Filt Rate > 60; Glucose 146 mg/dL (65-110); Magnesium 1.9 mg/dL (1.6-2.3); Potassium 3.4 mmol/L (3.4-5.0); Sodium 141 mmol/L (137-145)
--- NOTE | 2022-07-28 07:54 | PM.PNORT ---
Progress Note: A&P Assessment and Plan (1) Subtrochanteric fracture of right femur: Qualifiers: Encounter type: subsequent encounter Fracture type: closed Fracture alignment: displaced Fracture healing: with routine healing Qualified Code(s): S72.21XD - Displaced subtrochanteric fracture of right femur, subsequent encounter for closed fracture with routine healing Code(s): S72.21XA - Displaced subtrochanteric fracture of right femur, initial encounter for closed fracture Status: Acute Assessment and Plan: Postoperative day 1 right intramedullary hip screw. PT/OT with weight-bearing as tolerated. Pain control. DVT prophylaxis with aspirin. Disposition based on ability and function with therapy. Subjective Subjective Date/Time Seen: 07/28/22 07:54 Post Op day: 1 Principal diagnosis: Right hip intertrochanteric fracture Interval history: patient awake and alert. Somewhat restless overnight. Moderate pain right hip with movement. Denies numbness or tingling. Exam Const: General: comfortable; No acute distress Resp: Effort & Inspection: normal respiratory effort and no audible wheezes Extrem: Right lower extremity: lower leg ( Negative Homans sign), ankle Details: normal ROM ( dorsiflexion and plantar flexion intact) and foot Details: vascular exam Details: dorsalis pedis pulse present and normal capillary refill, tendon exam Details: active flexion normal and active extension normal and motor-sensory exam Details: light-touch normal Location: in all toes; no edema Left lower extremity: normal to inspection, ankle Details: normal ROM and foot Details: vascular exam Details: dorsalis pedis pulse present and normal capillary refill and motor-sensory exam light-touch normal in all toes; no edema Other: Moves all toes right foot. Good sensation light touch throughout. Good capillary refill and palpable DP pulse. Right hip incision clean dry and intact. Muscle soft. Objective Data Vital Signs Vital Signs: Vital Signs - 24 hr 07/27/22 08:40 07/27/22 14:01 07/27/22 13:43 Temperature 98.4 F 97.4 F L Pulse Rate 81 78 Respiratory Rate 18 18 Blood Pressure 134/56 L 124/49 L Pulse Oximetry 92 95 Oxygen Delivery Room Air Room Air Oxygen Flow Rate 07/27/22 16:36 07/27/22 16:45 07/27/22 17:00 Temperature 97 F L Pulse Rate 70 74 68 Respiratory Rate 14 16 14 Blood Pressure 120/47 L 120/44 L 137/45 L Pulse Oximetry 100 99 92 Oxygen Delivery Simple Face Mask Room Air Room Air Oxygen Flow Rate 10 07/27/22 17:15 07/27/22 17:25 07/27/22 17:40 Temperature 97.8 F Pulse Rate 72 68 75 Respiratory Rate 19 12 14 Blood Pressure 128/57 L 125/70 150/47 H Pulse Oximetry 99 99 90 Oxygen Delivery Nasal Cannula Nasal Cannula Oxygen Flow Rate 2 2 07/27/22 17:55 07/27/22 19:25 07/27/22 17:40 Temperature 97.2 F L 97.3 F L Pulse Rate 79 84 Respiratory Rate 16 16 Blood Pressure 152/59 H 146/50 H Pulse Oximetry 93 95 87 L Oxygen Delivery Room Air Oxygen Flow Rate 07/27/22 17:41 07/28/22 00:00 07/27/22 20:00 Temperature 98.2 F Pulse Rate 86 86 Respiratory Rate 16 16 Blood Pressure 128/62 Pulse Oximetry 90 92 92 Oxygen Delivery Nasal Cannula Nasal Cannula Oxygen Flow Rate 2 2 07/28/22 04:49 Temperature 98.3 F Pulse Rate 88 Respiratory Rate 16 Blood Pressure 142/56 H Pulse Oximetry 90 Oxygen Delivery Oxygen Flow Rate Intake/Output Intake/Output: Intake & Output 07/25/22 07/26/22 07/27/22 07/28/22 23:59 23:59 23:59 23:59 Intake Total 780 170 Output Total 1500 750 Balance -720 -580 Meds/Results Medications: Active Medications Generic Name Dose Route Start Last Admin Trade Name Freq PRN Reason Stop Dose Admin Acetaminophen 650 mg 07/27/22 17:27 Acetaminophen 325 Mg Tablet PO Q6H PRN Mild Pain (1-3) or Fever Hydrocodone Bitart/Acetaminophen 2 tab 07/27/22 17:27 Hydrocodone/Acetaminophe
[2022-07-28 07:56] LABS: Glucose Point of Care 135 mg/dl (65-105)
[2022-07-28] MEDS: ASPIRIN 325 MG ENTERIC TABLET PO ×2 (09:03→20:30)
[2022-07-28] MEDS: ACETAMINOPHEN 325 MG TABLET 650 MG PO (09:04)
[2022-07-28] MEDS: hydroCHLOROthiazide 25 MG TABLET PO (09:05)
[2022-07-28] MEDS: SENNA/DOCUSATE SODIUM TABLET 2 TAB PO ×2 (09:05→17:35)
[2022-07-28] MEDS: levETIRAcetam 250 MG TABLET 750 MG PO ×2 (09:05→20:31)
[2022-07-28] MEDS: lisinopriL 20 MG TABLET PO (09:05)
[2022-07-28] MEDS: polyethylene glycoL 3350 17 GM POWD.PACK PO (09:06)
--- NOTE | 2022-07-28 10:16 | PM.IMPN ---
Progress Note: A&P Assessment and Plan (1) Right femoral fracture: Code(s): S72.91XA - Unspecified fracture of right femur, initial encounter for closed fracture Status: Acute Assessment and Plan: POD #1 from Right hip IM nailing Orthopedics following along with medicine. Fall precautions PT evaluation today. Disposition will depend on his ability to participate. (2) Fall from ground level: Code(s): W18.30XA - Fall on same level, unspecified, initial encounter Status: Acute Assessment and Plan: see above (3) Essential (primary) hypertension: Code(s): I10 - Essential (primary) hypertension Status: Acute Assessment and Plan: currently well controlled. Home medications of Zestoretic reordered. Continue to monitor. (4) Type 1 diabetes mellitus: Qualifiers: Diabetes mellitus complication status: with skin complications Diabetes mellitus complication detail: with other skin complication Qualified Code(s): E10.628 - Type 1 diabetes mellitus with other skin complications Code(s): E10.9 - Type 1 diabetes mellitus without complications Status: Acute Assessment and Plan: Continue 50 units of Lantus at bedtime. Continue moderate dose corrective sliding scale insulin. Accu-Cheks a.c. and HS diabetic diet after operation hypoglycemic protocol. Time Spent With Patient Time with patient: 15 - 25 minutes Subjective Date/time seen: 07/28/22 10:16 This pt. was examined at the bedside today in interval assessment after undergoing an Right IM nailing yesterday. He has controlled pain and has been out of bed now twice. He is urinating without difficulty and is passing gas without difficulty. He has no new complaints such as CP, dyspnea, N/V/D, headaches, dizziness or lightheadedness. His disposition at this point will depend upon how he does with PT today. Review of Systems Review of Systems: All systems reviewed & are unremarkable except as noted in HPI and below Exam Const: General: comfortable and no acute distress HENMT: Mouth: Yes moist mucous membranes Eyes: General: appearance normal, both eyes and all related structures Sclera: sclerae normal Pupils: Equal, round and reactive pupils present EOM: EOMs intact bilaterally Neck: Neck: supple and no JVD Resp: Effort & Inspection: normal respiratory effort Auscultation: clear to auscultation bilaterally Cardio: Rate: regular rate Rhythm: regular rhythm Heart sounds: no gallops and no murmurs GI: Inspection: non-distended GI Palp: Yes Soft to palpation, No Tenderness to palpation present (GI) and No Guarding due to palpation present (GI) Auscultation: normal bowel sounds Skin: General skin exam: normal color and no rashes or lesions noted Lesions: no lesions noted Rashes: no rashes noted Wounds: no wounds Other: Right hip surgical dressing is clean, dry and intact. No signs of hematoma. Neuro: Speech: normal speech Motor exam (neuro): 5/5 motor strength present throughout and Normal motor muscle tone present throughout Sensory Exam: normal sensation Extrem: General: normal exam except as noted, no edema and no pedal edema Other: Alterations of gait and mobility with RLE, secondary to IM nailing performed yesterday. Psych: Mental Status: mental status grossly normal Affect: normal affect Objective Data Vital Signs Vital Signs: Vital Signs - 24 hr 07/27/22 14:01 07/27/22 13:43 07/27/22 16:36 Temperature 98.4 F 97.4 F L 97 F L Pulse Rate 81 78 70 Respiratory Rate 18 18 14 Blood Pressure 134/56 L 124/49 L 120/47 L Pulse Oximetry 92 95 100 Oxygen Delivery Room Air Simple Face Mask Oxygen Flow Rate 10 07/27/22 16:45 07/27/22 17:00 07/27/22 17:15 Temperature Pulse Rate 74 68 72 Respiratory Rate 16 14 19 Blood Pressure 120/44 L 137/45 L 128/57 L Pulse Oximetry 99 92 99 Oxygen Delivery Room Air Room Air Nasal Cannula Oxygen F
[2022-07-28 11:24] LABS: Glucose Point of Care 287 mg/dl (65-105)
[2022-07-28] MEDS: INSULIN ASPART (*BKC) 100 UNITS/ML SUB-Q ×2 (12:15→17:36)
--- NOTE | 2022-07-28 14:05 | WPDANESPN ---
Anes - Prog Note Post-Op Date/Time: 07/28/22 14:05 Vital Signs: Last Vital Signs Temp 36.1 C L 07/28/22 11:42 Pulse 93 07/28/22 11:42 Resp 16 07/28/22 11:42 BP 135/45 L 07/28/22 11:42 Pulse Ox 95 07/28/22 11:42 O2 Del Method Nasal Cannula 07/28/22 09:10 O2 Flow Rate 1 07/28/22 09:10 Pain Score (VAS): 0 I/O: Intake & Output 07/27/22 07/28/22 07/28/22 23:59 07:59 15:59 Intake Total 300 170 716 Output Total 0 750 Balance 300 -580 716 Laboratory Tests 07/28/22 07:23 07/28/22 07:23 07/27/22 07/27/22 07/27/22 14:05 16:47 21:43 WBC RBC Hgb Hct MCV MCH MCHC RDW Plt Count MPV Immature Gran % (Auto) Neut % (Auto) Lymph % (Auto) [place] % (Auto) Eos % (Auto) Baso % (Auto) Lymph # (Auto) [place] # (Auto) Eos # (Auto) Baso # (Auto) Abs Immat Gran (auto) Absolute Neuts (auto) Absolute Nucleated RBC Nucleated RBC % Sodium Potassium Chloride Carbon Dioxide Anion Gap BUN Creatinine Estim Creat Clear Calc Estimated GFR Glucose POC Capillary Glucose 371 H 378 H > 500 H* Calcium Magnesium Total Bilirubin AST ALT Alkaline Phosphatase Total Protein Albumin 07/27/22 07/28/22 07/28/22 23:23 00:55 07:23 WBC 14.7 H RBC 4.05 L Hgb 11.1 L Hct 34.0 L MCV 84.0 MCH 27.4 MCHC 32.6 RDW 13.8 Plt Count 269 MPV 9.6 Immature Gran % (Auto) 0.4 Neut % (Auto) 78.5 H Lymph % (Auto) 9.2 L [place] % (Auto) 8.9 H Eos % (Auto) 2.5 Baso % (Auto) 0.5 Lymph # (Auto) 1.35 [place] # (Auto) 1.3 H Eos # (Auto) 0.4 H Baso # (Auto) 0.1 Abs Immat Gran (auto) 0.06 H Absolute Neuts (auto) 11.5 H Absolute Nucleated RBC 0.0 Nucleated RBC % 0.0 Sodium Potassium Chloride Carbon Dioxide Anion Gap BUN Creatinine Estim Creat Clear Calc Estimated GFR Glucose POC Capillary Glucose > 500 H* 433 H Calcium Magnesium Total Bilirubin AST ALT Alkaline Phosphatase Total Protein Albumin 07/28/22 07/28/22 07/28/22 07:23 07:45 11:12 WBC RBC Hgb Hct MCV MCH MCHC RDW Plt Count MPV Immature Gran % (Auto) Neut % (Auto) Lymph % (Auto) [place] % (Auto) Eos % (Auto) Baso % (Auto) Lymph # (Auto) [place] # (Auto) Eos # (Auto) Baso # (Auto) Abs Immat Gran (auto) Absolute Neuts (auto) Absolute Nucleated RBC Nucleated RBC % Sodium 141 Potassium 3.4 Chloride 101 Carbon Dioxide 28 Anion Gap 12 BUN 26 H Creatinine 0.90 Estim Creat Clear Calc 71 Estimated GFR > 60 Glucose 146 H POC Capillary Glucose 135 H 287 H Calcium 8.0 L Magnesium 1.9 Total Bilirubin 0.3 AST 18 ALT 16 Alkaline Phosphatase 66 Total Protein 6.0 L Albumin 3.4 L Patient Feedback: Patient satisfied with anesthetic care.
[2022-07-28 16:26] LABS: Glucose Point of Care 377 mg/dl (65-105)
[2022-07-28] MEDS: HYDROcodone/acetaminophen (*CRX) 5-325 MG TABLET 2 TAB PO (17:39)
[2022-07-28] MEDS: AMITRIPTYLINE HCL 25 MG TABLET PO (20:31)
[2022-07-28] MEDS: INSULIN GLARGINE (*BKC) 100 UNITS/ML 50 UNITS SUB-Q (20:32)
[2022-07-28] MEDS: INSULIN ASPART (*BKC) 100 UNITS/ML 15 UNITS SUB-Q (20:32)
[2022-07-28 21:13] LABS: Glucose Point of Care 407 mg/dl (65-105)
[2022-07-28 22:07] LABS: Glucose Point of Care 303 mg/dl (65-105)
[2022-07-29 06:08] VITALS: BP 157/63; PULSE 88; RESP 16; TEMP 36.7; O2SAT 91
[2022-07-29 07:06] LABS: Basophils Absolute Auto 0.1 K/mm3 (0.0-0.1); Basophils Percent Auto 0.5 % (0.2-1.2); Eosinophils Absolute Auto 0.7 K/mm3 (0-0.3); Eosinophils Percent Auto 5.3 % (0-4.4); Hematocrit 34.6 % (42.0-52.0); Hemoglobin 11.4 g/dL (14.0-18.0); Immature Granulocyte Absolute 0.07 K/mm3 (0.00-0.031); Immature Granulocyte Percent A 0.5 % (0-0.5); Lymphocytes Absolute Auto 1.25 K/mm3 (0.9-3.2); Lymphocytes Percent Auto 8.9 % (18.3-44.2); Mean Corpuscular HGB Conc 32.9 g/dl (32-36); Mean Corpuscular Hemoglobin 27.7 pg (26-34); Mean Platelet Volume 9.9 fl (7.4-10.4); Monocytes Absolute Auto 1.3 K/mm3 (0.1-0.6); Monocytes Percent Auto 9.1 % (2.6-8.5); Neutrophils Absolute Auto 10.7 K/mm3 (1.3-6.7); Neutrophils Percent Auto 75.7 % (45.5-73.1); Platelet Count Result 248 k/mm3 (150-375); Red Blood Count 4.12 M/mm3 (4.6-6.20); Red Cell Distribution Width 13.7 % (11.5-14.5); White Blood Count 14.1 K/mm3 (4.5-10.0)
[2022-07-29 07:20] LABS: Alanine Aminotransferase 15 U/L (6-50); Albumin Level 3.5 g/dL (3.5-5.1); Alkaline Phosphatase 74 U/L (38-126); Anion Gap 13 mmol/L (8-16); Aspartate Amino Transferase 30 U/L (17-59); Bilirubin,Total 0.4 mg/dL (0.2-1.3); Blood Urea Nitrogen 21 mg/dL (9-20); Calcium 8.1 mg/dL (8.4-10.2); Carbon Dioxide 29 mmol/L (22-30); Chloride 99 mmol/L (98-107); Estimated CRCL calculation 80 ml/min; Estimated Glomerular Filt Rate > 60; Glucose 105 mg/dL (65-110); Magnesium 2.1 mg/dL (1.6-2.3); Sodium 141 mmol/L (137-145)
[2022-07-29 07:52] LABS: Glucose Point of Care 140 mg/dl (65-105)
--- NOTE | 2022-07-29 08:19 | PM.PNORT ---
Progress Note: A&P Assessment and Plan (1) Subtrochanteric fracture of right femur: Qualifiers: Encounter type: subsequent encounter Fracture type: closed Fracture alignment: displaced Fracture healing: with routine healing Qualified Code(s): S72.21XD - Displaced subtrochanteric fracture of right femur, subsequent encounter for closed fracture with routine healing Code(s): S72.21XA - Displaced subtrochanteric fracture of right femur, initial encounter for closed fracture Status: Acute Assessment and Plan: Postoperative day 2 right intramedullary hip screw. PT/OT with weight-bearing as tolerated. Pain control. DVT prophylaxis with aspirin. Disposition based on ability and function with therapy. Subjective Subjective Date/Time Seen: 07/29/22 08:19 Post Op day: 2 Principal diagnosis: Right hip intertrochanteric fracture Interval history: patient awake and alert. Moderate pain right hip with movement. Denies numbness or tingling. Exam Const: General: comfortable; No acute distress or confusion Orientation/consciousness: patient oriented x3 and No confusion Eyes: Conjunctivae: conjunctivae normal Sclera: sclerae normal Neck: Neck: supple and nontender Resp: Effort & Inspection: normal respiratory effort and no audible wheezes Neuro: General: patient oriented x3 Extrem: General: capillary refill normal Right upper extremity: normal to inspection Left upper extremity: normal to inspection Right lower extremity: hip/thigh Details: tenderness Location: of the hip Location: laterally and swelling Location: at the hip ( mild), lower leg ( Negative Homans sign), ankle Details: normal ROM ( dorsiflexion and plantar flexion intact) and foot Details: vascular exam Details: dorsalis pedis pulse present and normal capillary refill, tendon exam Details: active flexion normal and active extension normal and motor-sensory exam Details: light-touch normal Location: in all toes; no edema Left lower extremity: normal to inspection, hip/thigh Details: no tenderness and no swelling, lower leg, ankle Details: normal ROM and foot Details: vascular exam Details: dorsalis pedis pulse present and normal capillary refill and motor-sensory exam light-touch normal in all toes; no edema Other: Moves all toes right foot. Good sensation light touch throughout. Good capillary refill and palpable DP pulse. Right hip incision clean dry and intact. Muscle soft. Objective Data Vital Signs Vital Signs: Vital Signs - 24 hr 07/28/22 08:26 07/28/22 09:10 07/28/22 11:42 Temperature 96.9 F L Pulse Rate 93 Respiratory Rate 16 Blood Pressure 135/45 L Pulse Oximetry 90 95 Oxygen Delivery Nasal Cannula Nasal Cannula Oxygen Flow Rate 1 1 07/28/22 16:00 07/28/22 22:07 07/28/22 20:00 Temperature 98.4 F 99.5 F Pulse Rate 86 86 86 Respiratory Rate 16 16 16 Blood Pressure 148/58 H 138/62 Pulse Oximetry 93 91 91 Oxygen Delivery Room Air Oxygen Flow Rate 07/29/22 06:08 Temperature 98.0 F Pulse Rate 88 Respiratory Rate 16 Blood Pressure 157/63 H Pulse Oximetry 91 Oxygen Delivery Oxygen Flow Rate Intake/Output Intake/Output: Intake & Output 07/26/22 07/27/22 07/28/22 07/29/22 23:59 23:59 23:59 23:59 Intake Total 780 1686 400 Output Total 1500 750 850 Balance -720 936 -450 Meds/Results Medications: Active Medications Generic Name Dose Route Start Last Admin Trade Name Freq PRN Reason Stop Dose Admin Acetaminophen 650 mg 07/27/22 17:27 07/28/22 09:04 Acetaminophen 325 Mg Tablet PO 650 mg Q6H PRN Administration Mild Pain (1-3) or Fever Hydrocodone Bitart/Acetaminophen 2 tab 07/27/22 17:27 07/28/22 17:39 Hydrocodone/Acetaminophen (*Crx) 5-325 Mg Tablet PO 2 tab Q6H PRN Administration Pain Rated 7-10 Al Hydrox/Mg Hydrox/Simethicone 30 ml 07/27/22 17:27 Mag Hydrox/Al Hydrox/Simeth 30 Ml Udc PO Q6H PRN Indigestion
[2022-07-29] MEDS: HYDROcodone/acetaminophen (*CRX) 5-325 MG TABLET 2 TAB PO ×2 (08:20→15:36)
[2022-07-29] MEDS: lisinopriL 20 MG TABLET PO (08:23)
[2022-07-29] MEDS: hydroCHLOROthiazide 25 MG TABLET PO (08:23)
[2022-07-29] MEDS: levETIRAcetam 250 MG TABLET 750 MG PO ×2 (08:23→21:34)
[2022-07-29] MEDS: SENNA/DOCUSATE SODIUM TABLET 2 TAB PO ×2 (08:23→17:24)
[2022-07-29] MEDS: ASPIRIN 325 MG ENTERIC TABLET PO ×2 (08:23→21:34)
[2022-07-29] MEDS: polyethylene glycoL 3350 17 GM POWD.PACK PO (08:23)
[2022-07-29] MEDS: CALCIUM CARBONATE (TUMS) 500 MG (200 MG ELEMENTAL) PO ×2 (10:57→18:41)
[2022-07-29 11:34] LABS: Glucose Point of Care 466 mg/dl (65-105)
[2022-07-29] MEDS: INSULIN ASPART (*BKC) 100 UNITS/ML 16 UNITS SUB-Q ×2 (11:46→17:23)
[2022-07-29] MEDS: INSULIN ASPART (*BKC) 100 UNITS/ML SUB-Q ×2 (12:06→17:23)
[2022-07-29 14:00] VITALS: BP 123/51; PULSE 91; RESP 24; TEMP 36.8; O2SAT 91
[2022-07-29 16:36] LABS: Glucose Point of Care 309 mg/dl (65-105)
--- NOTE | 2022-07-29 17:02 | PM.IMPN ---
Progress Note: A&P Assessment and Plan (1) Right femoral fracture: Qualifiers: Encounter type: initial encounter Femur location: shaft Fracture type: closed Fracture morphology: oblique Fracture alignment: displaced Qualified Code(s): S72.331A - Displaced oblique fracture of shaft of right femur, initial encounter for closed fracture Code(s): S72.91XA - Unspecified fracture of right femur, initial encounter for closed fracture Status: Acute Assessment and Plan: mechanical fall with right femoral neck fracture on imaging. s/p right intramedullary nailing right hip on 07/27/22 Postop management per ortho. Continue pain control, PT/OT. Intra/postop antibiotics completed full strength aspirin BID for DVT prophylaxis H/H .. WBC 14. Surgical site w/o s/s infection, no dysuria or diarrhea. +cough but no sputum. Trend CBC. Afebrile. Plan for discharge to rehab- awaiting insurance approval (2) Fall from ground level: Code(s): W18.30XA - Fall on same level, unspecified, initial encounter Status: Acute Assessment and Plan: see above (3) Essential (primary) hypertension: Code(s): I10 - Essential (primary) hypertension Status: Acute Assessment and Plan: Chronic, stable. Continue lisinopril-HCTZ at home doses. K 3.0. Replace with 40 mEQ PO KCl and repeat BMP tomorrow . (4) Type 1 diabetes mellitus: Qualifiers: Diabetes mellitus complication detail: with other skin complication Diabetes mellitus complication status: with skin complications Qualified Code(s): E10.628 - Type 1 diabetes mellitus with other skin complications Code(s): E10.9 - Type 1 diabetes mellitus without complications Status: Acute Assessment and Plan: Chronic, stable. Insulin dependent x 30 years. Home regimen 50 units lantus at HS and aspart U-100 16 units plus sliding scale with meals TID. A1c 8.9% 07/27/22 Continue 50 units of Lantus at bedtime. Consider divided dose 25 units BID for better absorption if hyperglycemia persists. Accu-checks AC/HS. Hypoglycemia protocol Resume aspart 16 units with meals plus moderate dose corrective scale with meals. Consistent carb diet. Goal glucose <200 mg/dL for optimal wound healing. Plan CODE STATUS: FULL CODE Disposition: Acute versus subacute rehab Time Spent With Patient Time with patient: 15 - 25 minutes Subjective Date/time seen: 07/29/22 17:02 Patient found sitting up in the bed. He reports c/o right hip pain that is worse during his therapy sessions. He reports taking oral pain medication prior to therapy and thinks that this is helping. He reports taking lantus 50 units at HS and aspart 16 units plus sliding scale with meals at home typically. He denies carb counting or insulin corrections at home. He denies paresthesia, SOB, chest pain, abd pain, N/V/D or constipation. No dysuria or urgency. Review of Systems Review of Systems: All systems reviewed & are unremarkable except as noted in HPI and below Exam Narrative: General: No acute distress. Well-developed male sitting up in the bed. No oxygen. HEENT: Changes associated with right craniotomy. Patient is blind in the right eye. Left pupil reactive. Sclera anicteric. Oral mucosa moist. Neck: Supple. No JVD. Respiratory: Lungs are clear to auscultation bilaterally. Respirations regular and unlabored. Cardiovascular: Normal S1 and S2 regular rate and rhythm. No murmurs, gallops or rubs. Gastrointestinal: Abdomen is soft, protuberant, nontender, and nondistended with positive bowel sounds. No guarding. Skin: Warm and dry. No rash or lesions. Right hip incision x3 with peyman, well-approximated without drainage, erythema or ecchymosis. Extremities: No cyanosis, clubbing, or edema. Radial and pedal pulses palpable and equal. Grossly normal ROM all extremities, limited Right hip flexion secondary to pain. Neurological: Awake, aler
[2022-07-29] MEDS: POTASSIUM CHLORIDE 20 MEQ TABLET 40 MEQ PO (17:29)
[2022-07-29 20:00] VITALS: BP 134/53; PULSE 91; RESP 18; TEMP 36.2; O2SAT 94
[2022-07-29] MEDS: INSULIN GLARGINE (*BKC) 100 UNITS/ML 50 UNITS SUB-Q (21:30)
[2022-07-29] MEDS: AMITRIPTYLINE HCL 25 MG TABLET PO (21:34)
[2022-07-29 21:45] LABS: Glucose Point of Care 196 mg/dl (65-105)
[2022-07-30] VITALS: BP 137/65; PULSE 87; RESP 18; TEMP 36.3; O2SAT 94
--- NOTE | 2022-07-30 00:08 | PC.NURSE ---
Pt is here post hip fracture. Pt had surgery on R hip on 07/27/22. Pt has good pedal pulses. Dressing is dry and intact. Pt has no complaints of pain and verbalizes no needs at this time. Pt participated and contributed in plan of care. Will continue to monitor pt.
[2022-07-30 04:00] VITALS: BP 130/59; PULSE 84; RESP 18; TEMP 36.1; O2SAT 95
[2022-07-30 06:23] LABS: Basophils Absolute Auto 0.1 K/mm3 (0.0-0.1); Basophils Percent Auto 0.4 % (0.2-1.2); Eosinophils Absolute Auto 0.6 K/mm3 (0-0.3); Eosinophils Percent Auto 4.2 % (0-4.4); Hematocrit 31.5 % (42.0-52.0); Hemoglobin 10.4 g/dL (14.0-18.0); Immature Granulocyte Absolute 0.12 K/mm3 (0.00-0.031); Immature Granulocyte Percent A 0.9 % (0-0.5); Lymphocytes Absolute Auto 1.95 K/mm3 (0.9-3.2); Lymphocytes Percent Auto 13.9 % (18.3-44.2); Mean Corpuscular Hemoglobin 27.5 pg (26-34); Mean Corpuscular Volume 83.3 fl (80-100); Mean Platelet Volume 9.6 fl (7.4-10.4); Monocytes Absolute Auto 1.2 K/mm3 (0.1-0.6); Monocytes Percent Auto 8.7 % (2.6-8.5); Neutrophils Percent Auto 71.9 % (45.5-73.1); Platelet Count Result 273 k/mm3 (150-375); Red Blood Count 3.78 M/mm3 (4.6-6.20); Red Cell Distribution Width 13.8 % (11.5-14.5)
[2022-07-30 06:34] LABS: Anion Gap 8 mmol/L (8-16); Blood Urea Nitrogen 28 mg/dL (9-20); Calcium 8.8 mg/dL (8.4-10.2); Carbon Dioxide 29 mmol/L (22-30); Chloride 100 mmol/L (98-107); Estimated CRCL calculation 71 ml/min; Estimated Glomerular Filt Rate > 60; Glucose 140 mg/dL (65-110); Potassium 3.6 mmol/L (3.4-5.0); Sodium 137 mmol/L (137-145)
[2022-07-30 07:46] LABS: Glucose Point of Care 174 mg/dl (65-105)
[2022-07-30] MEDS: lisinopriL 20 MG TABLET PO (08:24)
[2022-07-30] MEDS: SENNA/DOCUSATE SODIUM TABLET 2 TAB PO ×2 (08:24→17:11)
[2022-07-30] MEDS: levETIRAcetam 250 MG TABLET 750 MG PO ×2 (08:24→20:06)
[2022-07-30] MEDS: hydroCHLOROthiazide 25 MG TABLET PO (08:24)
[2022-07-30] MEDS: ASPIRIN 325 MG ENTERIC TABLET PO ×2 (08:25→20:06)
[2022-07-30] MEDS: POTASSIUM CHLORIDE 20 MEQ TABLET.ER PO (08:25)
[2022-07-30] MEDS: ACETAMINOPHEN 325 MG TABLET 650 MG PO (08:25)
--- NOTE | 2022-07-30 08:42 | PM.IMPN ---
Progress Note: A&P Assessment and Plan (1) Right femoral fracture: Qualifiers: Encounter type: initial encounter Femur location: shaft Fracture alignment: displaced Fracture morphology: oblique Fracture type: closed Qualified Code(s): S72.331A - Displaced oblique fracture of shaft of right femur, initial encounter for closed fracture Code(s): S72.91XA - Unspecified fracture of right femur, initial encounter for closed fracture Status: Acute Assessment and Plan: mechanical fall with right femoral neck fracture on imaging. s/p right intramedullary nailing right hip on 07/27/22 Postop management per ortho. Continue pain control, PT/OT. Intra/postop antibiotics completed full strength aspirin BID for DVT prophylaxis H/H . WBC 14. Surgical site w/o s/s infection, no dysuria or diarrhea. +cough but no sputum. Trend CBC. Afebrile. UA negative for infection. Plan for discharge to rehab- will plan to discharge to [facility] tomorrow when blood sugar is improved. (2) Fall from ground level: Code(s): W18.30XA - Fall on same level, unspecified, initial encounter Status: Acute Assessment and Plan: see above (3) Essential (primary) hypertension: Code(s): I10 - Essential (primary) hypertension Status: Acute Assessment and Plan: Chronic, stable. Continue lisinopril-HCTZ at home doses. K 3.0. Replace with 40 mEQ PO KCl on 07/29/22. 07/30/22 K 3.6 (4) Type 1 diabetes mellitus: Qualifiers: Diabetes mellitus complication detail: with other skin complication Diabetes mellitus complication status: with skin complications Qualified Code(s): E10.628 - Type 1 diabetes mellitus with other skin complications Code(s): E10.9 - Type 1 diabetes mellitus without complications Status: Acute Assessment and Plan: Chronic, stable. Insulin dependent x 30 years. Home regimen 50 units lantus at HS and aspart U-100 16 units plus sliding scale with meals TID. A1c 8.9% 07/27/22 Continue 50 units of Lantus at bedtime. Consider divided dose 25 units BID for better absorption if hyperglycemia persists. Accu-checks AC/HS. Hypoglycemia protocol 07/29/22 Resume aspart 16 units with meals plus moderate dose corrective scale with meals. Consistent carb diet. Goal glucose <200 mg/dL for optimal wound healing. 07/30/22 fasting glucose 140 today, range 140 to 438. Increase to high dose corrective scale with meals. Given total 26 units aspart SQ with lunch. Will adjust aspart insulin to 16 units with breakfast and 20 units with lunch and dinner, plus sliding scale with meals. (5) Leukocytosis: Qualifiers: Leukocytosis type: unspecified Qualified Code(s): D72.829 - Elevated white blood cell count, unspecified Code(s): D72.829 - Elevated white blood cell count, unspecified Status: Acute Assessment and Plan: WBC consistently 14, increased bands noted. Patient is afebrile. UA negative for infection. Ensure patient is not constipated. Plan CODE STATUS: FULL CODE Disposition: Acute versus subacute rehab Will discharge tomorrow morning when glucose levels improved. Time Spent With Patient Time with patient: 15 - 25 minutes Subjective Date/time seen: 07/30/22 08:42 Patient sitting up in the chair. He is requesting a nicotine patch. His right hip is painful with therapy, but otherwise tolerable. He denies dysuria, constipation, abd pain, cough, sputum or CADET. No fevers, chills or diaphoresis. His blood sugar was 174 mg/dL this morning and 438 mg/dL prior to lunch. He was resumed on home aspart insulin therapy with meals yesterday. Review of Systems Review of Systems: All systems reviewed & are unremarkable except as noted in HPI and below Exam Narrative: General: No acute distress. Sitting up in the bed. No oxygen. HEENT: Changes associated with right craniotomy. Patient is blind in the right eye.
[2022-07-30] MEDS: INSULIN ASPART (*BKC) 100 UNITS/ML 16 UNITS SUB-Q ×2 (09:19→12:12)
--- NOTE | 2022-07-30 09:40 | PM.PNORT ---
Progress Note: A&P Assessment and Plan (1) Subtrochanteric fracture of right femur: Qualifiers: Encounter type: subsequent encounter Fracture type: closed Fracture alignment: displaced Fracture healing: with routine healing Qualified Code(s): S72.21XD - Displaced subtrochanteric fracture of right femur, subsequent encounter for closed fracture with routine healing Code(s): S72.21XA - Displaced subtrochanteric fracture of right femur, initial encounter for closed fracture Status: Acute Assessment and Plan: POD #3: Right Intramedullary Hip Screw PT/OT with weight-bearing as tolerated. Pain control. DVT prophylaxis with aspirin. Disposition based on ability and function with therapy. Dispo: SNF vs. [facility] Subjective Subjective Date/Time Seen: 07/30/22 09:40 Post Op day: 3 Principal diagnosis: Right hip intertrochanteric fracture Interval history: POD#3 Patient awake and alert. Moderate pain right hip with movement. Denies numbness or tingling. Exam Const: General: comfortable; No acute distress or confusion Orientation/consciousness: patient oriented x3 and No confusion HENMT: Head: normal to inspection, normocephalic and atraumatic Eyes: Conjunctivae: conjunctivae normal Sclera: sclerae normal Neck: Neck: supple and nontender Chest: Chest palpation & inspection: normal inspection of the chest Resp: Effort & Inspection: normal respiratory effort and no audible wheezes Cardio: Rate: regular rate Rhythm: regular rhythm : General: Yes deferred Skin: General skin exam: no rashes or lesions noted Neuro: General: patient oriented x3 and No confusion Cranial nerves: Yes Normal hearing present Extrem: General: capillary refill normal Right upper extremity: normal to inspection Left upper extremity: normal to inspection Right lower extremity: hip/thigh Details: tenderness Location: of the hip Location: laterally and swelling Location: at the hip ( mild), lower leg ( Negative Homans sign), ankle Details: normal ROM ( dorsiflexion and plantar flexion intact) and foot Details: vascular exam Details: dorsalis pedis pulse present and normal capillary refill, tendon exam Details: active flexion normal and active extension normal and motor-sensory exam Details: light-touch normal Location: in all toes; no edema Left lower extremity: normal to inspection, hip/thigh Details: no tenderness and no swelling, lower leg, ankle Details: normal ROM and foot Details: vascular exam Details: dorsalis pedis pulse present and normal capillary refill and motor-sensory exam light-touch normal in all toes; no edema Other: Moves all toes right foot. Good sensation light touch throughout. Good capillary refill and palpable DP pulse. Right hip incision clean dry and intact. Muscle soft. Psych: Affect: normal affect Objective Data Vital Signs Vital Signs: Vital Signs - 24 hr 07/29/22 14:00 07/29/22 20:00 07/29/22 21:34 Temperature 36.8 C 36.2 C L Pulse Rate 91 91 Respiratory Rate 24 H 18 Blood Pressure 123/51 L 134/53 L Pulse Oximetry 91 94 Oxygen Delivery Room Air 07/30/22 00:00 07/30/22 04:00 Temperature 36.3 C L 36.1 C L Pulse Rate 87 84 Respiratory Rate 18 18 Blood Pressure 137/65 130/59 L Pulse Oximetry 94 95 Oxygen Delivery Intake/Output Intake/Output: Intake & Output 07/27/22 07/28/22 07/29/22 07/30/22 23:59 23:59 23:59 23:59 Intake Total 780 1686 1610 0 Output Total 1500 750 850 Balance -720 936 760 0 Meds/Results Medications: Active Medications Generic Name Dose Route Start Last Admin Trade Name Freq PRN Reason Stop Dose Admin Acetaminophen 650 mg 07/27/22 17:27 07/30/22 08:25 Acetaminophen 325 Mg Tablet PO 650 mg Q6H PRN Administration Mild Pain (1-3) or Fever Hydrocodone Bitart/Acetaminophen 2 tab 07/27/22 17:27 07/29/22 15:36 Hydrocodone/Acetaminophen (*Crx) 5-325 Mg Tablet PO 2 tab Q6H PRN Administrati
[2022-07-30] MEDS: HYDROcodone/acetaminophen (*CRX) 5-325 MG TABLET 2 TAB PO ×2 (10:34→23:06)
[2022-07-30 11:22] LABS: Glucose Point of Care 438 mg/dl (65-105)
[2022-07-30] MEDS: INSULIN ASPART (*BKC) 100 UNITS/ML 10 UNITS SUB-Q (12:12)
[2022-07-30] MEDS: NICOTINE (*PBKC) 21 MG PATCH 1 PATCH TRANSDERM (12:17)
[2022-07-30 14:18] LABS: Add Urine Microscopic? YES; Appearance Urine Clear (Clear); Bilirubin Urine Negative (Negative); Blood Urine Negative (Negative); Color Urine Yellow (Yellow); Glucose Urine UA 3+ mg/dL (Negative); Ketones Urine Trace mg/dL (Negative); Leukocyte Esterase Ur Negative LEU/UL (Negative); Nitrate Urine Negative (Negative); Protein Urine Negative (Negative); RBC Urine 0-2 /hpf (0-2); Specific Grav Ur 1.025 (1.001-1.035); Urobilinogen Urine Negative mg/dL (<2.0); WBC Urine 0-3 /hpf
[2022-07-30 14:29] VITALS: BP 107/55; PULSE 103; RESP 16; TEMP 36.3; O2SAT 93
[2022-07-30 16:35] LABS: Glucose Point of Care 320 mg/dl (65-105)
[2022-07-30] MEDS: INSULIN ASPART (*BKC) 100 UNITS/ML 20 UNITS SUB-Q (17:12)
[2022-07-30] MEDS: INSULIN ASPART (*BKC) 100 UNITS/ML SUB-Q (17:13)
[2022-07-30 20:00] VITALS: BP 143/60; PULSE 96; RESP 18; TEMP 36.4; O2SAT 95
[2022-07-30] MEDS: AMITRIPTYLINE HCL 25 MG TABLET PO (20:06)
[2022-07-30] MEDS: INSULIN GLARGINE (*BKC) 100 UNITS/ML 50 UNITS SUB-Q (20:07)
[2022-07-30 21:55] LABS: Glucose Point of Care 178 mg/dl (65-105)
[2022-07-31 04:00] VITALS: BP 131/56; PULSE 91; RESP 18; TEMP 35.8; O2SAT 96
[2022-07-31] MEDS: HYDROcodone/acetaminophen (*CRX) 5-325 MG TABLET 2 TAB PO (07:57)
[2022-07-31 07:59] LABS: Glucose Point of Care 153 mg/dl (65-105)
[2022-07-31] MEDS: polyethylene glycoL 3350 17 GM POWD.PACK PO (08:00)
[2022-07-31] MEDS: NICOTINE (*PBKC) 21 MG PATCH 1 PATCH TRANSDERM (08:00)
[2022-07-31] MEDS: SENNA/DOCUSATE SODIUM TABLET 2 TAB PO (08:01)
[2022-07-31] MEDS: hydroCHLOROthiazide 25 MG TABLET PO (08:01)
[2022-07-31] MEDS: levETIRAcetam 250 MG TABLET 750 MG PO (08:01)
[2022-07-31] MEDS: POTASSIUM CHLORIDE 20 MEQ TABLET.ER PO (08:02)
[2022-07-31] MEDS: lisinopriL 20 MG TABLET PO (08:02)
[2022-07-31] MEDS: ASPIRIN 325 MG ENTERIC TABLET PO (08:02)
[2022-07-31] MEDS: INSULIN ASPART (*BKC) 100 UNITS/ML 16 UNITS SUB-Q (08:03)
--- NOTE | 2022-07-31 10:30 | PM.DS ---
DS: Admitting Diagnosis Discharge Date 07/31/22 1106 Admitting Diagnosis (1) Right femoral fracture (2) Fall from ground level (3) Essential (primary) hypertension, chronic (4) Type 1 diabetes mellitus without complications, chronic DS: Discharge Diagnosis Discharge Diagnosis (1) Right femoral fracture: Qualifiers: Encounter type: initial encounter Femur location: shaft Fracture alignment: displaced Fracture morphology: oblique Fracture type: closed Qualified Code(s): S72.331A - Displaced oblique fracture of shaft of right femur, initial encounter for closed fracture Code(s): S72.91XA - Unspecified fracture of right femur, initial encounter for closed fracture Status: Acute (2) Fall from ground level: Code(s): W18.30XA - Fall on same level, unspecified, initial encounter Status: Acute (3) Essential (primary) hypertension: Code(s): I10 - Essential (primary) hypertension Status: Chronic (4) Type 1 diabetes mellitus: Qualifiers: Diabetes mellitus complication detail: with other skin complication Diabetes mellitus complication status: with skin complications Qualified Code(s): E10.628 - Type 1 diabetes mellitus with other skin complications Code(s): E10.9 - Type 1 diabetes mellitus without complications Status: Acute (5) Leukocytosis: Qualifiers: Leukocytosis type: unspecified Qualified Code(s): D72.829 - Elevated white blood cell count, unspecified Code(s): D72.829 - Elevated white blood cell count, unspecified Status: Acute DS: Summary Hospital Course Reason for hospitalization: Right hip pain Hospital Course: Geovani Jackson is a 76-year-old male with type 1 diabetes mellitus and hypertension who presented to the emergency department via EMS from home for evaluation of right hip pain after a fall. He was in his usual state of health on the day of admission and not long prior to arrival he was out in the [place] sweeping leaves. After he was finished and when he turned to shut the garage door, he got tripped up in his footing and landed hard on his right hip. He was unable to get himself up due to pain and EMS was summoned. In the ED he was found to have an oblique fracture of the proximal shaft of the right femur with additional fracture planes in the proximal femur extending towards the greater trochanter, He sustained no other injuries in the fall and there was no head trauma or loss of consciousness.? He was admitted to the medical floor for orthopedic evaluation. Right femoral fracture: mechanical fall with oblique right femoral neck fracture on imaging. s/p right intramedullary nailing right hip on 07/27/22. Postop management per ortho. -?Continue pain control with [place] 5/325 mg PO PRN, PT/OT,?Intra/postop antibiotics completed full strength aspirin BID for DVT prophylaxis 28 days per Ortho started 07/27/22 07/30/22 H/H 11.4/34. WBC 14. Surgical site w/o s/s infection, no dysuria or diarrhea. +cough but no sputum. Afebrile. UA negative for infection. discharge to [facility] for PT/OT Essential (primary) hypertension: Chronic, stable. BP 131/56 Continue lisinopril-HCTZ at home doses. K 3.0. Replaced with 40 mEQ PO KCl on 07/29/22. 07/30/22 K 3.6 Type 1 diabetes mellitus? Chronic, stable. Insulin dependent x 30 years. Home regimen 50 units lantus at HS and aspart U-100 16 units plus sliding scale with meals TID. A1c 8.9% 07/27/22 Continue 50 units of Lantus at bedtime.? Accu-checks AC/HS.?Hypoglycemia protocol during hospitalization? 07/29/22 Resume aspart 16 units with meals plus moderate dose corrective scale with meals. Consistent carb diet. Goal glucose <200 mg/dL for optimal wound healing. 07/30/22 fasting glucose 140 today, range 140 to 438. Increased to high dose corrective scale with meals. Given total 26 units aspart SQ with lunch. Adjusted aspart insulin to 16 units with breakfast and 20 units with lunch and
--- NOTE | 2022-07-31 11:12 | PCOTNOTE ---
Patient refused OT at this time. Will continue plan of care.
[2022-07-31 11:45] LABS: Glucose Point of Care 158 mg/dl (65-105)
[2022-07-31 11:48] LABS: EDCOVIDSCREEN Negative (Negative)
[2022-07-31] MEDS: INSULIN ASPART (*BKC) 100 UNITS/ML 20 UNITS SUB-Q (11:52)
== END 2022-07-31 13:00 | DRG 482 ==
LOC: ANHED 18:57 → ANH3MEDSUR 20:32
PROVIDERS: Emergency Medicine; Nurse Practitioner Adult Health; Orthopaedic Surgery; Physician Assistant; Admitting Provider Chiropractor; Emergency Provider Emergency Medicine; PCP Family Medicine; Visit Provider Nurse Practitioner Family
PROC: 0QS636Z Reposition Right Upper Femur with Intramedullary Internal Fixation Device, Percutaneous Approach (ICD-10-PCS; CPT 27245; principal; 2022-07-27 15:00)
DX: S72.331A Displaced oblique fracture of shaft of right femur, initial encounter for closed fracture (principal); I10 Essential (primary) hypertension; E78.5 Hyperlipidemia, unspecified; J45.909 Unspecified asthma, uncomplicated; D72.829 Elevated white blood cell count, unspecified; H54.40 Blindness, one eye, unspecified eye; H40.9 Unspecified glaucoma; R56.9 Unspecified convulsions; E10.9 Type 1 diabetes mellitus without complications; F17.210 Nicotine dependence, cigarettes, uncomplicated; W18.30XA Fall on same level, unspecified, initial encounter; Z20.822 Contact with and (suspected) exposure to COVID-19; Z86.011 Personal history of benign neoplasm of the brain; Z79.82 Long term (current) use of aspirin; Z79.4 Long term (current) use of insulin
CPT/HCPCS: 36415; 71045; 73502; 80048; 80053; 81001; 82948; 83036; 83735; 85025; 85027; 85610; 85730; 86850; 86900; 86901; 87426; 93005; 96374; 96375; 97110; 97116; 97161; 97165; 97530; 97535; 99199; 99285; A9270; C1713; C9803; J0690; J1815; J1885; J2270; J2405; J2704; J3010; J7030; J7120; U0003; U0005

== ENCOUNTER 2024-06-12 10:23 | Outpatient (CLI) | payer MEDICARE, OTHER, SELFPAY ==
[2024-06-12 15:13] LABS: Microalbumin Urine Random 27.6 mg/L (0-16.7)
[2024-06-12 15:23] LABS: Creatinine Urine 119.3 mg/dL; MALB Creatinine Ratio 23.1 mg/g (0-30)
== END 2024-06-12 10:24 | disposition home or self-care (01) ==
LOC: ANHGOSHLAB 10:24
PROVIDERS: PCP Family Medicine; Visit Provider Nurse Practitioner Family
DX: E11.9 Type 2 diabetes mellitus without complications (principal)
CPT/HCPCS: 82043